=== PATIENT | male | born 1995 | race Two or more races ===

== ENCOUNTER 2025-09-29 23:04 | Emergency (ER) | payer MEDICAID ==
[~2025-09-29] VITALS: Ht 170.2 cm; Wt 75.0 kg
[2025-09-29 23:16] VITALS: TEMP 98.1; O2SAT 99
[2025-09-30 00:38] LABS: BASOPHILS % 1.1 % (0.0-2.0); EOSINOPHILS % 2.8 % (0.0-5.0); HEMATOCRIT. 38.3 % (42.0-52.0); HEMOGLOBIN. 12.7 g/dL (14.0-18.0); LYMPHOCYTES % 38.1 % (20.0-50.0); MEAN PLATELET VOLUME 7.7 fl (7.4-10.4); MONOCYTES % 5.5 % (2.0-8.0); NEUTROPHILS % 52.5 % (40.0-76.0); PLATELET 251 x1000/uL (130-400); RED BLOOD CELL COUNT 4.30 mill/uL (4.7-6.1); RED CELL DISTRIBUTION WIDTH 14.2 % (11.6-14.6)
[2025-09-30 00:46] LABS: CREATININE 1.1 mg/dL (0.6-1.3); UREA NITROGEN BLOOD 11 mg/dL (9-23)
[2025-09-30 00:48] LABS: TROPONIN I HIGH SENSITIVITY < 4 ng/L (3.0-53)
[2025-09-30 01:30] VITALS: BP 102/55; PULSE 55; RESP 16
[2025-09-30] MEDS: KETOROLAC 15MG/ML VIAL IM ONE (01:30)
[2025-09-30] MEDS: ONDANSETRON HCL 4MG TABLET PO ONE (02:26)
[2025-09-30] MEDS ORDERED: BENZ100C86 MT (02:39)
[2025-09-30] MEDS ORDERED: NAPR-1176 MT (02:39)
[2025-09-30] MEDS ORDERED: DOXY100C5 MT (05:02)
== END 2025-09-30 05:07 | disposition home or self-care (01) ==
LOC: ER 23:04
DX: B34.9 Viral infection, unspecified (principal); R30.0 Dysuria; Z90.49 Acquired absence of other specified parts of digestive tract; Z79.1 Long term (current) use of non-steroidal anti-inflammatories (NSAID); Z79.899 Other long term (current) drug therapy
CPT/HCPCS: 99285; 71045; 36415; 93005; 74176; 80048; 85025; 84484; 96372; J1885; Q0162